=== PATIENT | female | born 1975 | race Caucasian/White ===

== ENCOUNTER → 2018-03-23 | Outpatient (CLI) | payer OTHER ==
[~2018-03-23] MED LIST: ALBU90OI61; ALBU90OI61 INH; CLIN300 PO; CRUTCH USE; CYCL10 PO; Cipro500 MG PO; DIPH50 PO; ESCI10; HYDACE10B PO; HYDACE5 PO; HYDACE7.5 PO; HYDHCL25 PO; IBUP800 PO; INHALER INH; METPRE4DP PO; MISO200 PO; NAPR500 PO; NAPR550 PO; OXYACE5T PO; PRAZ1 PO; PREN-16; PROM25 PO; Pyridium200 MG PO; RANI150 PO
[2018-03-23 14:00] LABS: BASOPHILS ABSOLUTE AUTO 0.06 K/mm3 (0.00-0.23); BASOPHILS PERCENT AUTO 1 % (0-2); EOSINOPHILS ABSOLUTE AUTO 0.08 K/mm3 (0.00-0.68); EOSINOPHILS PERCENT AUTO 1 % (0-6); Hematocrit 39.5 % (33.0-51.0); IMMATURE GRAN ABSOLUTE AUTO 0.02 K/mm3 (0.00-0.10); IMMATURE GRAN PERCENT AUTO 0 % (0-1); LYMPHOCYTES ABSOLUTE AUTO 2.42 K/mm3 (0.84-5.20); LYMPHOCYTES PERCENT AUTO 27 % (21-46); MONOCYTES ABSOLUTE AUTO 0.45 K/mm3 (0.16-1.47); MONOCYTES PERCENT AUTO 5 % (4-13); Mean Corpuscular HGB 31.9 pg (26.0-34.0); Mean Corpuscular HGB Conc 35.4 g/dL (31.5-36.5); Mean Corpuscular Volume 90 fL (80-100); Mean Platelet Volume 10.3 fL (9.1-12.4); NEUTROPHILS ABSOLUTE AUTO 6.08 K/mm3 (1.96-9.15); NEUTROPHILS PERCENT AUTO 67 % (41-73); Platelet Count 378 K/mm3 (150-400); RDW Coefficient Variation 12.6 % (11.7-14.2); RDW Standard Deviation 41.6 fL (35.1-46.3); Red Blood Cell Count 4.39 M/mm3 (3.80-5.20); White Blood Cell Count 9.11 K/mm3 (4.00-11.30)
[2018-03-23 14:11] LABS: Alanine Aminotransfer (ALT/SGP 17 U/L (12-78); Albumin, Blood 4.4 g/dL (3.4-5.0); Albumin/Globulin Ratio 1.3 (0.8-1.8); Alk Phos 69 U/L (40-126); Anion Gap 12 mmol/L (6-16); Aspartate Aminotrans (AST/SGOT 15 U/L (12-37); Bilirubin, Total 0.4 mg/dL (0.1-1.0); Blood Urea Nitrogen 8 mg/dL (8-24); Bun/Creatinine Ratio 8.2 (12.0-20.0); CO2, Blood 26 mmol/L (21-32); Calcium, Blood 9.1 mg/dL (8.5-10.1); Chloride, Blood 103 mmol/L (98-108); Creatinine, Blood 0.98 mg/dL (0.40-1.00); Globulin, Blood 3.4 g/dL (2.2-4.0); Glomerular Filtration Rate >60 (60-); Glucose, Blood 98 mg/dL (70-99); Potassium, Blood 3.8 mmol/L (3.5-5.5); Sodium, Blood 141 mmol/L (136-145); Total Protein, Blood 7.8 g/dL (6.4-8.2)
[2018-03-25 10:16] LABS: Antinuclear Antibody Screen Negative (Negative)
[2018-03-25 13:43] LABS: Rheumatoid Factor, Serum Negative (Negative)
== END | disposition home or self-care (01) ==
LOC: LAB EV 13:56 → LAB SHORT 13:56
PROVIDERS: General Practice
DX: M79.671 Pain in right foot (principal)
CPT/HCPCS: 80053; 85025; 85651; 86038; 86140; 86430

== ENCOUNTER 2019-04-24 10:55 | Day surgery (SDC) | payer OTHER ==
[~2019-04-24] VITALS: Ht 137.2 cm; Wt 38.9 kg
[~2019-04-24 10:55] MED LIST changes: +HALLS3.2 MG MM
[2019-04-24] MEDS ORDERED: Norco 5-325 Ta1 EACH (13:24)
[2019-04-24] MEDS ORDERED: DEXT15ER (13:24)
--- NOTE | 2019-04-24 13:51 | NUR ---
04/24/19 1350 Sidra Ordonez APOLOGIZED FOR THE DELAY IN PROCEDURE START TIME DUE TO PREVIOUS PROCEDURES RUNNING LONGER THAN EXPECTED.
--- NOTE | 2019-04-24 14:38 | NUR ---
04/24/19 1438 Sidra Ordonez O2 10L VIA POM MASK
--- NOTE | 2019-04-24 15:47 | NUR ---
04/24/19 1547 Sidra Ordonez PT COUGHING UP THICK, CLEAR SPUTUM AFTER PROCEDURE. ORAL SUCTION DONE IN OR. PT ABLE TO COUGH AND DEEP BREATHE IN SDU. DUONEB GIVEN IN SDU PER DR HENDRICKSON AND DR WADE. COUGHING RESOLVED PRIOR TO DC. INCENTIVE SPIROMETER TEACHING PROVIDED AND SENT HOME WITH PT.
== END 2019-04-24 15:37 | disposition home or self-care (01) ==
LOC: ORSCSDS 10:55
PROVIDERS: Student in an Organized Health Care Education/Training Program
PROC: 0DB58ZX Excision of Esophagus, Via Natural or Artificial Opening Endoscopic, Diagnostic (ICD-10-PCS; principal; 2019-04-24 12:30)
PROC: 0DB68ZX Excision of Stomach, Via Natural or Artificial Opening Endoscopic, Diagnostic (ICD-10-PCS; principal; 2019-04-24 12:30)
PROC: 0DB98ZX Excision of Duodenum, Via Natural or Artificial Opening Endoscopic, Diagnostic (ICD-10-PCS; principal; 2019-04-24 12:30)
DX: R10.9 Unspecified abdominal pain (principal); R11.2 Nausea with vomiting, unspecified; R19.7 Diarrhea, unspecified; B96.81 Helicobacter pylori [H. pylori] as the cause of diseases classified elsewhere; K29.70 Gastritis, unspecified, without bleeding; K44.9 Diaphragmatic hernia without obstruction or gangrene; E11.9 Type 2 diabetes mellitus without complications; F41.8 Other specified anxiety disorders; I10 Essential (primary) hypertension; J45.909 Unspecified asthma, uncomplicated; F17.210 Nicotine dependence, cigarettes, uncomplicated
CPT/HCPCS: 88305; 88342; J2250; J2704; J7120

== ENCOUNTER 2020-07-05 14:02 | Emergency (ER) | payer OTHER ==
[~2020-07-05] VITALS: Ht 137.2 cm; Wt 44.5 kg
[~2020-07-05 14:02] MED LIST changes: +DEXT15ER; +Norco 5-325 Ta1 EACH
== END 2020-07-05 15:25 | disposition left against medical advice (07) ==
LOC: ER 14:02
DX: Z53.21 Procedure and treatment not carried out due to patient leaving prior to being seen by health care provider (principal)

== ENCOUNTER 2021-03-20 15:20 | Emergency (ER) | payer OTHER ==
[~2021-03-20] VITALS: Ht 139.7 cm; Wt 41.7 kg
[2021-03-20] MEDS ORDERED: LIDO700A20 TOP (16:51)
[2021-03-20] MEDS ORDERED: CYCL10 PO (16:51)
== END 2021-03-20 17:13 | disposition home or self-care (01) ==
LOC: ER 15:20
DX: M54.16 Radiculopathy, lumbar region (principal); Z91.09 Other allergy status, other than to drugs and biological substances; Z88.0 Allergy status to penicillin; Z88.6 Allergy status to analgesic agent; Z91.040 Latex allergy status; Z88.1 Allergy status to other antibiotic agents; Z91.030 Bee allergy status; F17.210 Nicotine dependence, cigarettes, uncomplicated
CPT/HCPCS: 73502; 96372; 99283-25; A9270; J1885

== ENCOUNTER → 2021-07-06 | Outpatient (CLI) | payer OTHER ==
[~2021-07-06] MED LIST changes: +LIDO700A20 TOP
== END | disposition home or self-care (01) ==
LOC: LAB SHORT 10:03 → LAB 10:03
DX: R10.13 Epigastric pain (principal)
CPT/HCPCS: 87338

== ENCOUNTER → 2022-07-25 | Outpatient (CLI) | payer OTHER ==
[~2022-07-25] MED LIST changes: +CATAPRES-TTS 11 EAC1; +Flonase 0.05% N16 GM; +HYDACE10B; +SERT25
[2022-07-27 15:10] LABS: HPV 16 Negative (Negative); HPV 18 Negative (Negative); HPV OTHER HR TYPES Negative (Negative)
== END ==
LOC: LAB 13:51 → LAB SHORT 13:51
PROVIDERS: Family Medicine
DX: Z01.419 Encounter for gynecological examination (general) (routine) without abnormal findings (principal)
CPT/HCPCS: 87624; G0123

== ENCOUNTER → 2024-06-11 | Outpatient (CLI) | payer OTHER | END | disposition home or self-care (01) | LOC: LAB SHORT 08:07 → LAB 08:07 | DX: D22.61 Melanocytic nevi of right upper limb, including shoulder (principal) | CPT/HCPCS: 88305 ==